=== PATIENT | female | born 1965 | race Caucasian/White ===

== ENCOUNTER → 2021-08-06 | Outpatient (CLI) | payer BC ==
[~2021-08-06] MED LIST: EPIPEN 2-P0.3 MG/0.3 INJ; NAPROSYN500 MG PO; PREDNISONE 20 M20 MG PO
[2021-08-06 12:47] LABS: HEMOGLOBIN 15.6 gm/dl (12.3-15.3); RED BLOOD COUNT 4.92 M/UL (4.00-5.10); WHITE BLOOD COUNT 8.4 K/UL (4.5-11.0)
[2021-08-06 13:11] LABS: BUN/CREATININE RATIO 14 (0-10)
== END ==
LOC: LAB 12:00
PROVIDERS: Physician Assistant Medical
DX: E78.2 Mixed hyperlipidemia (principal); I10 Essential (primary) hypertension
CPT/HCPCS: 36415; 80053; 80061; 85027